=== PATIENT | female | born 1950 | race Caucasian/White ===

== ENCOUNTER 2022-09-16 11:27 | Emergency (ER) | payer MEDICARE, OTHER, SELFPAY ==
[2022-09-16 11:33] VITALS: BP 146/113; PULSE 87; RESP 16; TEMP 37.5; O2SAT 97; BMI 24.2
--- NOTE | 2022-09-16 11:34 | ED.GENADULT ---
HPI - General Adult General Time Seen by Provider: 11:34 Date Seen: 09/16/22 Chief complaint: Allergic Reaction Stated complaint: Burning sensation in face, tightness in throat Time Seen by Provider: 09/16/22 11:33 Source: patient Mode of arrival: ambulatory Limitations: no limitations History of Present Illness HPI narrative: 72-year-old female who comes in today with possible allergic reaction. She complains of burning sensation her face and tightness in her throat starting this morning. She had a CT scan with contrast yesterday. She premedicated and does have a history of contrast reaction, but was not given any medication for home. She took 25 mg of Benadryl twice at 9:30 a.m. at about 10:00 a.m.. Minimal improvement and so came to the emergency department. She reports for but of tingling in the lips and throat tightness but no wheezing or voice changes. Related Data Previous Rx's Medication Instructions Recorded cetirizine 10 mg capsule (Zyrtec) 10 mg PO DAILY #7 caps 09/16/22 methylprednisolone 4 mg tablets in See Rx Instructions PO .COMPLEX 09/16/22 a dose pack (Medrol (Ramón)) #21 ea Allergies Allergy/AdvReac Type Severity Reaction Status Date / Time amoxicillin Allergy Verified 09/16/22 11:36 Iodinated Contrast Media Allergy Verified 09/16/22 11:36 penicillin G Allergy Verified 09/16/22 11:36 sulfamethoxazole Allergy Verified 09/16/22 11:36 [From Bactrim] trimethoprim [From Bactrim] Allergy Verified 09/16/22 11:36 Review of Systems Status of ROS: Reports: 10 or more systems reviewed and unremarkable except as noted in History and below PFSH PFS Social History Smoking Status: Never smoker Do you use any of these nicotine containing products: None Second hand tobacco smoke exposure: No How often do you have a drink containing alcohol: never How often do you have six or more drinks on one occasion: Never AUDIT-C Alcohol total score: 0 Non-prescribed substance use: denies use service: No Exam Narrative: Exam Narrative: General: Well-developed and well-nourished, no acute distress Head: Atraumatic and normocephalic Eyes: Pupils are equal reactive, extraocular motions intact, conjunctiva clear ENT: External nose and ears are normal, posterior pharynx without erythema or exudate Neck: No midline cervical tenderness, full spontaneous range of motion the neck, trachea midline, no adenopathy Heart: Regular rate and rhythm no murmurs or thrills Lungs: Clear to auscultation bilaterally without wheezes or crackles Abdomen: Soft, nontender, nondistended with active bowel sounds Musculoskeletal: No tenderness, deformity, or edema Neurologic: Awake, alert, and oriented x3, no gross focal neurologic deficits, cranial nerves intact as tested Psych: Mood and affect are appropriate Skin: Cheeks are slightly flushed Const: Vital Signs, click to edit/add: Vital Signs - 24 hr 09/16/22 11:33 09/16/22 11:37 Temperature 99.5 F Pulse Rate [Left P ulse Oximeter] 87 Respiratory Rate 16 Blood Pressure [Le ft Upper Arm] 146/113 H 141/76 H Pulse Oximetry 97 Oxygen Delivery Me thod Room Air Course Course Hospital Course: Patient seen and examined, prior records are reviewed. Patient had a CT scan with contrast yesterday and has had some flushing of the cheeks as well as tingling around the lips today. She has a history of prior contrast allergy and was premedicated. She took Benadryl at home. On exam here, cheeks are slightly flushed, no lip or tongue swelling, no was changes. Symptoms are most consistent with a late adverse reaction to contrast. Patient will be given famotidine IV as well as Solu-Medrol, fluids, and Toradol. If remains stable, plan to discharge with steroids and continued antihistamines for home. Vital Signs Vital signs: Initial Vital Signs Temperature 99.5 F 09/16/22 11:33 Temperature Source Temporal Artery Scan 09/16/22 11:33 Pulse Rate 87 09/16/22 11:33 Pulse Rhythm 09/16/22 11:33 Pulse Strength 3+ Normal 09/16/22 11:33 Respiratory Rate 16 09/16/22 11:33 Blood Pressure 146/113 H 09/16/22 11:33 Blood Pressure Mean 124 09/16/22 11:33 Pulse Oximetry 97 09/16/22 11:33 Oxygen Delivery Method 09/16/22 11:33 Vital Signs Temperature 99.5 F 09/16/22 11:33 Pulse Rate 87 09/16/22 11:33 Respiratory Rate 16 09/16/22 11:33 Blood Pressure 146/113 H 09/16/22 11:33 Pulse Oximetry 97 09/16/22 11:33 Oxygen Delivery Method 09/16/22 11:33 Temperature 99.5 F 09/16/22 11:33 Pulse Rate 87 09/16/22 11:33 Respiratory Rate 16 09/16/22 11:33 Blood Pressure 141/76 H 09/16/22 11:37 Pulse Oximetry 97 09/16/22 11:33 Oxygen Delivery Method 09/16/22 11:33 Medical Decision Making Medical Records Medical records reviewed: Yes I reviewed the patient's medical records Lab Data Lab results reviewed: Yes I reviewed the patient's lab results Discharge Plan Discharge Clinical Impression: Adverse effect of contrast media after premedication Patient Disposition: Home, Self-Care Condition: Stable Instructions: General Allergic Reaction (ED) Additional Instructions: Take Benadryl every 6 hours for 24 hours, and then as needed Take Zyrtec daily for 1 week Take steroid as prescribed Take Tylenol or ibuprofen as needed for flushing or fever Activity Level: No Restrictions Discharge Diet: Regular Prescriptions: New methylprednisolone [Medrol (Ramón)] 4 mg tablets,dose pack See Rx Instructions .ROUTE .COMPLEX Qty: 21 0RF Rx Instructions: orally per package directions Zyrtec 10 mg capsule 10 mg PO DAILY Qty: 7 0RF Stand Alone Forms: [employer] Info Instructions
[2022-09-16 11:37] VITALS: BP 141/76
[2022-09-16] MEDS: KETOROLAC 15 MG/ML inj IVP (12:43)
[2022-09-16] MEDS: METHYLPREDNISOLONE SOD SUCC 62.5 MG/ML (125) 125 MG IVP (12:43)
[2022-09-16] MEDS: FAMOTIDINE 10 MG/ML inj 20 MG IVP (12:43)
[2022-09-16] MEDS: 0.9 % SODIUM CHLORIDE 500 ML 500 ML IV (12:45)
== END 2022-09-16 13:41 | disposition home or self-care (01) ==
PROVIDERS: Emergency Provider Family Medicine; PCP Family Medicine
DX: R23.2 Flushing (principal); T50.8X5A Adverse effect of diagnostic agents, initial encounter
CPT/HCPCS: 96374; 96375; 99283; 99284; J1885; J2930; J7120; S0028